=== PATIENT | female | born 1955 | race Caucasian/White ===

== ENCOUNTER 2016-04-27 13:32 | Emergency (ER) | payer OTHER ==
[2016-04-27] MEDS ORDERED: ASPIRIN 81 MG CHEW TABLET As Ordered ONE (14:24)
[2016-04-27 14:28] LABS: BASO # 0.1 K/mm3 (0.0-0.2); BASO % 0.9 % (0.0-1.0); EOS # 0.4 K/mm3 (0.0-0.50); LARGE UNSTAINED CELL # 0.2 K/mm3 (0.0-0.4); LARGE UNSTAINED CELL % 2.2 % (0.0-4.0); LYMPH # 1.8 K/mm3 (1.5-4.5); LYMPH % 24.4 % (24.0-44.0); MEAN CORPUSCULAR HEMOGLOBIN 29.5 pg (27.0-33.0); MEAN CORPUSCULAR HGB CONC 33.1 g/dl (32.0-36.5); MONO # 0.4 K/mm3 (0.0-0.8); NEUTROPHILS # 4.4 K/mm3 (1.8-7.7); NEUTROPHILS % 61.5 % (36.0-66.0); PLATELET COUNT, AUTOMATED 270 k/mm3 (150-450); RED CELL DISTRIBUTION WIDTH 12.7 % (11.5-14.5); WHITE BLOOD COUNT 7.2 K/mm3 (4.0-10.0)
[2016-04-27 14:45] LABS: ALBUMIN 3.8 GM/DL (3.2-5.2); ALBUMIN/GLOBULIN RATIO 1.06 (1.00-1.93); ALKALINE PHOSPHATASE 61 U/L (45-117); ALT/SGPT 24 U/L (12-78); AMYLASE 37 U/L (25-115); ANION GAP 8 MEQ/L (8-16); AST/SGOT 17 U/L (15-37); BILIRUBIN,DIRECT < 0.1 MG/DL (0.0-0.2); BILIRUBIN,TOTAL 0.3 MG/DL (0.2-1.0); BLOOD UREA NITROGEN 21 MG/DL (7-18); CALCIUM LEVEL 8.8 MG/DL (8.5-10.1); CARBON DIOXIDE LEVEL 26 MEQ/L (21-32); CHLORIDE LEVEL 108 MEQ/L (98-107); CREATININE FOR GFR 0.74 MG/DL (0.55-1.02); GLOMERULAR FILTRATION RATE > 60.0 (>51); GLUCOSE, FASTING 89 MG/DL (70-105); SODIUM LEVEL 142 MEQ/L (136-145); TOTAL PROTEIN 7.4 GM/DL (6.4-8.2)
[2016-04-27] MEDS ORDERED: ISOVUE-370 76% 100ML VIAL (Q9967) As Ordered ONE (14:59)
--- NOTE | 2016-04-27 15:52 | REP ---
CT pulmonary angiogram: With IV contrast. History: Chest pain. Comparison studies: Comparison chest x-ray from this date. Contrast dose: 75 cc's of Isovue [address] technique: Helical scanning is acquired and overlapping 1.5 mm and contiguous 3 mm axial images are reformatted. In addition, a 3-D work station is deployed to generate thick slab maximum intensity projection images in sagittal and coronal imaging projections. CT pulmonary angiographic findings: There is good opacification of the pulmonary arterial tree and there is no CT evidence of pulmonary embolus. Maximum intensity projection images show no evidence of vessel cutoff or filling defect in any of the pulmonary arterial branches. The thoracic aorta enhances homogeneously and is normal in caliber and course. No hilar or mediastinal mass or adenopathy is seen. A small hiatal hernia is noted behind the heart. Lung window settings show no evidence of pulmonary mass or infiltrate. There are two small areas of pleural plaquing along the minor fissure on the right. No bony destructive lesion is appreciated. Degenerative disc changes are noted in the thoracic spine. There are clips in the gallbladder fossa. No adrenal lesion is seen. Impression: 1. No CT evidence of pulmonary embolus. 2. Small sliding-type hiatal hernia. 3. Postcholecystectomy clips. No other significant abnormality. Signed by Michael Simpson MD 04/27/2016 04:50 P
--- NOTE | 2016-04-27 17:54 | EDDOCDS ---
Physician Documentation [facility] Name: Stephanie Gotti Age: 60 yrs Sex: Female : 1955 Arrival Date: 04/27/2016 Time: 13:32 Bed 12 Private MD: Taras [facility] [place] Disposition: 04/27/16 17:32 Discharged to Home/Self Care. Impression: Chest pain, unspecified, Other abdominal hernia - hiatal hernia. - Condition is Stable. - Discharge Instructions: Nonspecific Chest Pain, Hiatal Hernia. - Medication Reconciliation, Local Pharmacy Hours form. - Follow up: Wilfredo Garner MD; When: 4 - 5 days. Follow up: Milena Pollard, [facility]; When: Tomorrow. - Problem is new. - Symptoms have improved. - Notes[place] to Dr Ryan. He is happy to see you in consult. Return if worsening symptoms. Historical: - Allergies: SULFA (SULFONAMIDES); - Home Meds: 1. Lisinopril Unknown Oral Unknown once daily (Last dose: 04/27/2016 05:00) 2. Nexium 20 mg Oral cpDR 1 cap once daily (Last dose: 04/27/2016 05:00) 3. Fish Oil 1,000 mg Oral cap daily (Last dose: 04/27/2016 05:00) 4. ibuprofen 400 mg Oral tab (Last dose: 04/27/2016 05:00) 5. pine bark daily (Last dose: 04/27/2016 05:00) 6. allergy pill daily (Last dose: 04/27/2016 05:00) - PMHx: Hypertension; GERD; seasonal allergies; - PSHx: Cholecystectomy; hernia repair; - Social history: Smoking status: Patient states was never smoker of tobacco. Patient uses alcohol weekly. Patient/guardian denies using street drugs, No barriers to communication noted, The patient speaks fluent Nigerian, Speaks appropriately for age. - Family history: Not pertinent. - : The pt / caregiver states he / she is not on anticoagulants. Home medication list is obtained from the patient. - Exposure Risk Screening:: None identified. Vital Signs: 04/27 13:44 BP 172 / 87; Pulse 66; Resp 18; Pulse Ox 97% ; Weight 106.59 kg / 234.99 lbs; Height 5 ttb ft. 4 in. (162.56 cm); Pain 0/10; 13:44 BP 172 / 87 (auto/); dsf 13:44 Pulse 78 MON; Pulse Ox 96% ; dsf 13:57 BP 148 / 81 (auto/); dsf 13:57 Pulse 72 MON; Pulse Ox 95% ; dsf 14:00 Pulse 76 MON; Pulse Ox 95% ; ttb 14:11 BP 166 / 79 (auto/); ttb 14:11 Pulse 78 MON; Pulse Ox 95% ; ttb 14:15 Pulse 84 MON; Resp 18 S; Pulse Ox 96% on R/A; Pain 0/10; ttb 14:26 BP 178 / 76 (auto/); dsf 14:26 Pulse 76 MON; Pulse Ox 94% ; dsf 14:27 Temp 97.1(O); ttb 14:41 BP 183 / 78 (auto/); dsf 14:41 Pulse 68 MON; Pulse Ox 98% ; dsf 14:56 BP 185 / 86 (auto/); dsf 14:56 Pulse 70 MON; Pulse Ox 96% ; dsf 15:07 BP 173 / 95 (auto/); dsf 15:09 Pulse Ox 96% ; dsf 15:11 BP 194 / 81 (auto/); dsf 15:11 Pulse 100 MON; Pulse Ox 97% ; dsf 15:17 BP 163 / 77 (auto/); dsf 15:17 Pulse 100 MON; Pulse Ox 97% ; dsf 15:26 BP 145 / 78 (auto/); dsf 15:26 Pulse 82 MON; Pulse Ox 95% ; dsf 15:41 BP 146 / 78 (auto/); dsf 15:41 Pulse 76 MON; Pulse Ox 95% ; dsf 17:48 BP 147 / 76; Pulse 78; Resp 16; Temp 97.2(T); Pulse Ox 94% on R/A; Pain 0/10; dsf 13:44 Body Mass Index 40.34 (106.59 kg, 162.56 cm) ttb MDM: 13:37 ECG WITH READING ER PHYS+CARDIAG ordered. EDMS 14:22 Oral Temp ordered. ml 14:22 IV Saline Lock ordered. ml 14:22 Shower Maid/Pulse Ox/q 15 min VS ordered. ml 14:22 Rhythm Strip to chart ordered. ml 14:23 Aspirin Chewable Tablet 324 mg PO once ordered. ml 14:23 CBC with Diff Ordered. EDMS 14:23 MED Profile Ordered. EDMS 14:23 CIP Ordered. EDMS 14:23 Troponin Ordered. EDMS 14:23 D-Dimer Quant Ordered. EDMS 14:23 Liver Profile Ordered. EDMS 14:23 Lipase Ordered. EDMS 14:23 Amylase Ordered. EDMS 14:23 Chest, 1 View Ordered. EDMS 14:50 CBC with Diff Reviewed. ml 14:50 MED Profile Reviewed. ml 14:50 D-Dimer Quant Reviewed. ml 14:50 CIP Reviewed. ml 14:50 Troponin Reviewed. ml 14:50 Liver Profile Reviewed. ml 14:50 Lipase Reviewed. ml 14:50 Amylase Reviewed. ml 14:54 CT Chest Angio R/O PE Ordered. EDMS 15:33 Financial registration complete. gjb 15:37 [facility] Payment Agreement was scanned into [employer] and attached to record. gjb 15:42 Repeat EKG (put time details section) ordered. ml 15:42 Redraw CIP &Troponin (put time in details section) ordered. ml 16:04 Redraw CIP &Troponin (put time in details section) complete. lbd 16:04 Repeat EKG (put time details section) complete. lbd 16:08 CARDIAC MARKER PANEL Ordered. EDMS 16:08 ECG WITH READING ER PHYS ordered. EDMS 16:41 CT Chest Angio R/O PE Reviewed. ml 17:31 CARDIAC MARKER PANEL Reviewed. ml 17:31 CT Chest Angio R/O PE Reviewed. ml Administered Medications: 14:26 Drug: Aspirin 324 mg [aspirin 81 mg chewable tablet (4 tabs)] Route: PO; ttb Signatures: Dispatcher [employer] EDIN Rylie Mahmood MD MD ml Daly, Linda, Yard Conductor Unit [facility] Pattie York RN RN dsf Conner, Teresa, RN RN ttb Beck, Gabriela gjb The chart was reviewed and I authenticate all verbal orders and agree with the evaluation and treatment provided.Attachments: 15:37 [facility] Payment Agreement gj MTDD
--- NOTE | 2016-04-27 17:54 | EDDOCDS ---
Nurse's Notes [facility] Name: Stephanie Gotti Age: 60 yrs Sex: Female : 1955 Arrival Date: 04/27/2016 Time: 13:32 Bed 12 Private MD: DELBERT Grajeda Diagnosis: Chest pain, unspecified;Other abdominal hernia-hiatal hernia Presentation: 04/27 13:36 Presenting complaint: EMS states: chest pressure x4 days intermittent. SOB with ttb exertion. NR in route. Aspirin was not taken prior to arrival. Adult Sepsis Screening: The patient does not have new or worsening altered mentation. Patient's respiratory rate is less than 22. Systolic blood pressure is greater than 100. Patient has a qSOFA score of 0- Negative Sepsis Screen. Suicide/Homicide risk assessment- the patient denies having any suicidal and/or homicidal ideations and does not present with any other emotional, behavioral or mental health complaints. Status: The patient is a dependent. Transition of care: patient was not received from another setting of care. 13:36 Acuity: YOSSI Level 3 ttb 13:36 Method Of Arrival: Ambulance ttb Triage Assessment: 13:44 General: Appears in no apparent distress, well nourished, well groomed, Behavior is ttb appropriate for age, cooperative, pleasant. Pain: Denies pain. HIV screening NA for this visit Offered previously. Neurological: Level of Consciousness is awake, alert. Cardiovascular: Chest pain is described as "pressure not pain". Respiratory: Reports shortness of breath on exertion since worsening over 5 years -- 2 days worsening Denies cough, shortness of breath. GI: Denies nausea, vomiting, pain. Derm: Skin is normal. Musculoskeletal: Denies pain. Historical: - Allergies: SULFA (SULFONAMIDES); - Home Meds: 1. Lisinopril Unknown Oral Unknown once daily (Last dose: 04/27/2016 05:00) 2. Nexium 20 mg Oral cpDR 1 cap once daily (Last dose: 04/27/2016 05:00) 3. Fish Oil 1,000 mg Oral cap daily (Last dose: 04/27/2016 05:00) 4. ibuprofen 400 mg Oral tab (Last dose: 04/27/2016 05:00) 5. pine bark daily (Last dose: 04/27/2016 05:00) 6. allergy pill daily (Last dose: 04/27/2016 05:00) - PMHx: Hypertension; GERD; seasonal allergies; - PSHx: Cholecystectomy; hernia repair; - Social history: Smoking status: Patient states was never smoker of tobacco. Patient uses alcohol weekly. Patient/guardian denies using street drugs, No barriers to communication noted, The patient speaks fluent Yoruba, Speaks appropriately for age. - Family history: Not pertinent. - : The pt / caregiver states he / she is not on anticoagulants. Home medication list is obtained from the patient. - Exposure Risk Screening:: None identified. Screenin:52 Screening information is obtained from the patient. Fall risk: No risks identified. dsf Assistance ADL's: requires no assistance with activities of daily living. Abuse/DV Screen: The patient / caregiver reports he/she is: not in a situation that causes fear, pain or injury. Nutritional screening: No deficits noted. Advance Directives: Currently, there is no health care proxy. home support is adequate. Assessment: 14:00 General: Pt resting on stretcher. NAD noted. Primary RN given report. . Cardiovascular: ttb Rhythm is sinus rhythm No ectopy. 14:28 General: ASA given as documented. NAD noted. SR on monitor. Denies SOB, nausea.. ttb 15:01 Adult Sepsis Screening: The patient does not have new or worsening altered mentation. dsf Patient's respiratory rate is less than 22. Systolic blood pressure is greater than 100. Patient has a qSOFA score of 0- Negative Sepsis Screen. General: Appears in no apparent distress, comfortable, Behavior is appropriate for age, cooperative. Pain: Denies pain. Neurological: Level of Consciousness is awake, alert, Oriented to person, place, time. Cardiovascular: Capillary refill < 3 seconds Heart tones S1 S2 present Rhythm is sinus rhythm No ectopy. Respiratory: Airway is patent Respiratory effort is even, unlabored, Respiratory pattern is regular, symmetrical, Breath sounds are clear bilaterally. Denies shortness of breath. GI: Abdomen is non- distended Bowel sounds present X 4 quads. Abd is soft and non tender X 4 quads. Derm: Skin is pink, warm & dry. 15:53 General: Appears in no apparent distress, Behavior is appropriate for age, cooperative. dsf Pain: Denies pain. Neurological: Level of Consciousness is awake, alert. Cardiovascular: Capillary refill < 3 seconds Rhythm is sinus rhythm No ectopy. Respiratory: Airway is patent Respiratory effort is even, unlabored, Respiratory pattern is regular, symmetrical, Denies shortness of breath. Derm: Skin is pink, warm & dry. 16:37 General: Appears in no apparent distress, comfortable, Behavior is appropriate for age, dsf cooperative. Pain: Denies pain. Neurological: Level of Consciousness is awake, alert. Cardiovascular: Capillary refill < 3 seconds Rhythm is sinus rhythm No ectopy. Respiratory: Airway is patent Respiratory effort is even, unlabored, Respiratory pattern is regular, symmetrical. Derm: Skin is pink, warm & dry. 17:37 Adult Sepsis Screening: The patient does not have new or worsening altered mentation. dsf Patient's respiratory rate is less than 22. Systolic blood pressure is greater than 100. Patient has a qSOFA score of 0- Negative Sepsis Screen. General: Appears in no apparent distress, Behavior is appropriate for age, cooperative. Pain: Denies pain. Neurological: Level of Consciousness is awake, alert. Cardiovascular: Capillary refill < 3 seconds Rhythm is sinus rhythm No ectopy. Respiratory: Airway is patent Respiratory effort is even, unlabored, Respiratory pattern is regular, symmetrical. Derm: Skin is. Vital Signs: 13:44 BP 172 / 87; Pulse 66; Resp 18; Pulse Ox 97% ; Weight 106.59 kg; Height 5 ft. 4 in. ttb (162.56 cm); Pain 0/10; 13:44 BP 172 / 87 (auto/); dsf 13:44 Pulse 78 MON; Pulse Ox 96% ; dsf 13:57 BP 148 / 81 (auto/); dsf 13:57 Pulse 72 MON; Pulse Ox 95% ; dsf 14:00 Pulse 76 MON; Pulse Ox 95% ; ttb 14:11 BP 166 / 79 (auto/); ttb 14:11 Pulse 78 MON; Pulse Ox 95% ; ttb 14:15 Pulse 84 MON; Resp 18 S; Pulse Ox 96% on R/A; Pain 0/10; ttb 14:26 BP 178 / 76 (auto/); dsf 14:26 Pulse 76 MON; Pulse Ox 94% ; dsf 14:27 Temp 97.1(O); ttb 14:41 BP 183 / 78 (auto/); dsf 14:41 Pulse 68 MON; Pulse Ox 98% ; dsf 14:56 BP 185 / 86 (auto/); dsf 14:56 Pulse 70 MON; Pulse Ox 96% ; dsf 15:07 BP 173 / 95 (auto/); dsf 15:09 Pulse Ox 96% ; dsf 15:11 BP 194 / 81 (auto/); dsf 15:11 Pulse 100 MON; Pulse Ox 97% ; dsf 15:17 BP 163 / 77 (auto/); dsf 15:17 Pulse 100 MON; Pulse Ox 97% ; dsf 15:26 BP 145 / 78 (auto/); dsf 15:26 Pulse 82 MON; Pulse Ox 95% ; dsf 15:41 BP 146 / 78 (auto/); dsf 15:41 Pulse 76 MON; Pulse Ox 95% ; dsf 17:48 BP 147 / 76; Pulse 78; Resp 16; Temp 97.2(T); Pulse Ox 94% on R/A; Pain 0/10; dsf 13:44 Body Mass Index 40.34 (106.59 kg, 162.56 cm) ttb Vitals: 13:44 Log In Time N/A - ambulance arrival. ttb ED Course: 13:34 Patient visited by Jagruti Garcia, Brake Holder. lbd 13:34 Patient moved to Waiting lbd 13:35 DELBERT Grajeda is Private Physician. lbd 13:36 Patient moved to 12 lbd 13:36 patient relations specialist on. Pulse ox on. NIBP on. dsf 13:38 Triage Initiated ttb 13:46 Patient visited by Maureen Hughes PCA. jlf 13:46 EKG done. (by ED staff). Reviewed by Rylie Mahmood MD. jlf 13:47 Patient visited by Maureen Hughes PCA. jlf 14:00 Inserted peripheral IV: 20gauge IV in left antecubital area and blood collected. ttb Patient tolerated the procedure well. Labs drawn. (by ED staff). 14:09 Rylie Mahmood MD is Attending Physician. ml 14:09 Patient visited by Rylie Mahmood MD. ml 14:28 Patient visited by Janki Figueroa RN. ttb 15:05 Patient visited by Maureen Hughes PCA. jlf 15:06 Patient visited by Pattie York RN. dsf 15:[address] peg 15:18 Patient moved to 12 dsf 15:37 [facility] Payment Agreement was scanned into [employer] and attached to record. gjb 15:54 Patient visited by Pattie York RN. dsf 16:10 CT Chest Angio R/O PE Returned. EDMS 16:31 Patient visited by Maureen Hughes PCA. jlf 16:31 EKG done. (by ED staff). Reviewed by Rylie Mahmood MD. jlf 16:35 CARDIAC MARKER PANEL Sent. dsf 16:38 Patient visited by Pattie York RN. dsf 16:51 Patient visited by Maureen Hughes PCA. jlf 17:11 CT Chest Angio R/O PE Returned. EDMS 17:32 Wilfredo Garner MD is Referral Physician. ml 17:32 Milena Pollard [facility] is Referral Physician. ml 17:49 Discontinued lock intact, bleeding controlled, pressure dressing applied, No dsf redness/swelling at site. No procedures done that require assistance. 17:53 The patient / caregiver is instructed regarding the plan of care and ED course. dsf Administered Medications: 14:26 Drug: Aspirin 324 mg [aspirin 81 mg chewable tablet (4 tabs)] Route: PO; ttb Order Results: Lab Order: CBC with Diff; SPEC'M 04/27/16 13:47 Test: WHITE BLOOD COUNT; Value: 7.2; Range: 4.0-10.0; Units: K/mm3; Status: F Test: RED BLOOD COUNT; Value: 4.52; Range: 4.00-5.40; Units: M/mm3; Status: F Test: HEMOGLOBIN; Value: 13.3; Range: 12.0-16.0; Units: g/dl; Status: F Test: HEMATOCRIT; Value: 40.3; Range: 36.0-47.0; Units: %; Status: F Test: MEAN CORPUSCULAR VOLUME; Value: 89.0; Range: 80.0-96.0; Units: fl; Status: F Test: MEAN CORPUSCULAR HEMOGLOBIN; Value: 29.5; Range: 27.0-33.0; Units: pg; Status: F Test: MEAN CORPUSCULAR HGB CONC; Value: 33.1; Range: 32.0-36.5; Units: g/dl; Status: F Test: RED CELL DISTRIBUTION WIDTH; Value: 12.7; Range: 11.5-14.5; Units: %; Status: F Test: PLATELET COUNT, AUTOMATED; Value: 270; Range: 150-450; Units: k/mm3; Status: F Test: NEUTROPHILS %; Value: 61.5; Range: 36.0-66.0; Units: %; Status: F Test: LYMPH %; Value: 24.4; Range: 24.0-44.0; Units: %; Status: F Test: MONO %; Value: 6.0; Range: 0.0-5.0; Abnormal: Above high normal; Units: %; Status: F Test: EOS %; Value: 5.0; Range: 0.0-3.0; Abnormal: Above high normal; Units: %; Status: F Test: BASO %; Value: 0.9; Range: 0.0-1.0; Units: %; Status: F Test: LARGE UNSTAINED CELL %; Value: 2.2; Range: 0.0-4.0; Units: %; Status: F Test: NEUTROPHILS #; Value: 4.4; Range: 1.8-7.7; Units: K/mm3; Status: F Test: LYMPH #; Value: 1.8; Range: 1.5-4.5; Units: K/mm3; Status: F Test: MONO #; Value: 0.4; Range: 0.0-0.8; Units: K/mm3; Status: F Test: EOS #; Value: 0.4; Range: 0.0-0.50; Units: K/mm3; Status: F Test: BASO #; Value: 0.1; Range: 0.0-0.2; Units: K/mm3; Status: F Test: LARGE UNSTAINED CELL #; Value: 0.2; Range: 0.0-0.4; Units: K/mm3; Status: F Lab Order: MED Profile; SPEC'M 04/27/16 13:47 Test: GLUCOSE, FASTING; Value: 89; Range: 70-105; Units: MG/DL; Status: F Test: BLOOD UREA NITROGEN; Value: 21; Range: 7-18; Abnormal: Above high normal; Units: MG/DL; Status: F Test: CREATININE FOR GFR; Value: 0.74; Range: 0.55-1.02; Units: MG/DL; Status: F Test: GLOMERULAR FILTRATION RATE; Value: > 60.0; Range: >51; Status: F Test: SODIUM LEVEL; Value: 142; Range: 136-145; Units: MEQ/L; Status: F Test: POTASSIUM SERUM; Value: 4.0; Range: 3.5-5.1; Units: MEQ/L; Status: F Test: CHLORIDE LEVEL; Value: 108; Range: 98-107; Abnormal: Above high normal; Units: MEQ/L; Status: F Test: CARBON DIOXIDE LEVEL; Value: 26; Range: 21-32; Units: MEQ/L; Status: F Test: ANION GAP; Value: 8; Range: 8-16; Units: MEQ/L; Status: F Test: CALCIUM LEVEL; Value: 8.8; Range: 8.5-10.1; Units: MG/DL; Status: F Test Note: ; Units are mL/min/1.73 m2 Chronic Kidney Disease Staging per NKF: Stage I & II GFR >=60 Normal to Mildly Decreased Stage III GFR 30-59 Moderately Decreased Stage IV GFR 15-29 Severely Decreased Stage V GFR <15 Very Little GFR Left ESRD GFR <15 on MANAGER RN CASE Lab Order: CIP; SPEC'M 04/27/16 13:47 Test: CPK CREATINE PHOSPHOKINASE; Value: 102; Range: 26-192; Units: U/L; Status: F Test: CK-MB VALUE MASS; Value: 1.0; Range: 0.0-3.6; Units: NG/ML; Status: F Test: MB/CK RELATIVE INDEX; Value: 0.98; Range: < OR =4; Status: F Test Note: ; DIAGNOSIS CRITERIA MMB ng/ml Relative Index (RI) NON-AMI < or = 5 N/A DASILVA ZONE > 5 < or = 4 AMI > 5 > 4 Lab Order: Troponin; SPEC'M 04/27/16 13:47 Test: TROPONIN I; Value: < 0.02; Range: < 0.10; Units: NG/ML; Status: F Test Note: ; Troponin I Reference Interval for Siemens Rumsey LOCI: 99th Percentile= 0.00-0.045 ng/ml Risk Stratification: <= 0.10 ng/ml Decreased Risk for Adverse Clinical Events. 0.10-1.50 ng/ml Increased Risk for Adverse Clinical Events. Evaluation of additional criterion and/or repeat testing in 2-6 hours is suggested to rule out myocardial damage. >= 1.50 ng/ml Indicative of Myocardial Injury. Lab Order: D-Dimer Quant; [facility]04/27/16 13:47 Test: D-DIMER QUANT; Value: 531.0; Range: <500; Abnormal: Above high normal; Units: ng/ml; Status: F Lab Order: Liver Profile; [facility]04/27/16 13:47 Test: AST/SGOT; Value: 17; Range: 15-37; Units: U/L; Status: F Test: ALT/SGPT; Value: 24; Range: 12-78; Units: U/L; Status: F Test: ALKALINE PHOSPHATASE; Value: 61; Range: 45-117; Units: U/L; Status: F Test: BILIRUBIN,TOTAL; Value: 0.3; Range: 0.2-1.0; Units: MG/DL; Status: F Test: BILIRUBIN,DIRECT; Value: < 0.1; Range: 0.0-0.2; Units: MG/DL; Status: F Test: TOTAL PROTEIN; Value: 7.4; Range: 6.4-8.2; Units: GM/DL; Status: F Test: ALBUMIN; Value: 3.8; Range: 3.2-5.2; Units: GM/DL; Status: F Test: ALBUMIN/GLOBULIN RATIO; Value: 1.06; Range: 1.00-1.93; Status: F Lab Order: Lipase; [facility]04/27/16 13:47 Test: LIPASE; Value: 130; Range: 73-393; Units: U/L; Status: F Lab Order: Amylase; 04/27/16 13:47 Test: AMYLASE; Value: 37; Range: 25-115; Units: U/L; Status: F Lab Order: CARDIAC MARKER PANEL; [facility] 04/27/16 16:32 Test: CPK CREATINE PHOSPHOKINASE; Value: 94; Range: 26-192; Units: U/L; Status: F Test: CK-MB VALUE MASS; Value: 1.1; Range: 0.0-3.6; Units: NG/ML; Status: F Test: MB/CK RELATIVE INDEX; Value: 1.17; Range: < OR =4; Status: F Test: TROPONIN I; Value: < 0.02; Range: < 0.10; Units: NG/ML; Status: F Test Note: ; DIAGNOSIS CRITERIA MMB ng/ml Relative Index (RI) NON-AMI < or = 5 N/A DASILVA ZONE > 5 < or = 4 AMI > 5 > 4 Radiology Order: CT Chest Angio R/O PE Test: CT Chest Angio R/O PE REASON FOR EXAMINATION: Chest Pain; CT pulmonary angiogram: With IV contrast.; ; History: Chest pain.; ; Comparison studies: Comparison chest x-ray from this date.; ; Contrast dose: 75 cc's of Isovue 370 are administered intravenously.; ; CT technique: Helical scanning is acquired and overlapping 1.5 mm and contiguous; 3 mm axial images are reformatted. In addition, a 3-D work station is deployed; to generate thick slab maximum intensity projection images in sagittal and; coronal imaging projections.; ; CT pulmonary angiographic findings: There is good opacification of the pulmonary; arterial tree and there is no CT evidence of pulmonary embolus. Maximum; intensity projection images show no evidence of vessel cutoff or filling defect; in any of the pulmonary arterial branches. The thoracic aorta enhances; homogeneously and is normal in caliber and course. No hilar or mediastinal mass; or adenopathy is seen. A small hiatal hernia is noted behind the heart. Lung; window settings show no evidence of pulmonary mass or infiltrate. There are two; small areas of pleural plaquing along the minor fissure on the right. No bony; destructive lesion is appreciated. Degenerative disc changes are noted in the; thoracic spine. There are clips in the gallbladder fossa. No adrenal lesion is; seen.; ; Impression:; ; 1. No CT evidence of pulmonary embolus.; ; 2. Small sliding-type hiatal hernia.; ; 3. Postcholecystectomy clips. No other significant abnormality.; ; ; Signed by; Michael Simpson MD 04/27/2016 04:50 P; Outcome: 17:32 Discharge ordered by Provider. ml 17:53 Discharge Assessment: Patient awake, alert and oriented x 3. No cognitive and/or dsf functional deficits noted. Patient verbalized understanding of disposition instructions. patient administered narcotics - no. The following High Risk Discharge criteria are identified: None. Discharged to home ambulatory. Condition: stable. Discharge instructions given to patient, Instructed on discharge instructions, follow up and referral plans. Demonstrated understanding of instructions, Pt was receptive of discharge instructions/ teaching. CT Study completed. Property sent home with patient. 17:54 Patient left the ED. dsf Signatures: Dispatcher [employer] EDMS Rylie Mahmood MD MD ml Daly, Linda, Brake Holder Unit lbd Ignacio Nicholson Desiree,RN RN Janki Rachel, JOSE ANGEL RN Maureen Babcock, SOHAN COLORER Robina Cortez JANEEN
--- NOTE | 2016-04-27 18:12 | ECGEPIP ---
Stationary ECG Study [facility] - ED Test Date: 2016-04-27 Pat Name: ALEJANDRINA HERNANDEZ Department: Room: - Gender: F Devulcanizer Loader: echo : 1955 Requested By: Rylie Mahmood Order Number: [id number] Reading MD: Lubna Jett Measurements Intervals [place] Rate: 69 P: 64 [place]: 192 QRS: 39 QRSD: 89 T: 41 QT: 384 QTc: 414 Interpretive Statements SINUS RHYTHM POSSIBLE LEFT ATRIAL ENLARGEMENT NO PRIOR FOR COMPARISON Electronically Signed On 04-27-2016 18:12:04 EST by Lubna Jett
--- NOTE | 2016-04-27 18:15 | ECGEPIP ---
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
--- NOTE | 2016-04-28 11:31 | REP ---
AP portable chest radiograph 04/27/2016 Indication: Chest pain Comparison: PA and lateral chest 10/01/2010 Findings: The cardiomediastinal silhouette is upper normal size. Small amount of fibro atelectatic changes are seen in the lingula. Lungs are otherwise clear. Bones and soft tissues are within normal limits. Impression: Cardiomediastinal silhouette upper normal size. Small amount of fibro atelectatic changes in lingula Signed by Shelly Mason MD 04/28/2016 11:23 A
--- NOTE | 2016-04-29 18:55 | EDDOCDS ---
Physician Documentation [facility] Name: Stephanie Gotti Age: 60 yrs Sex: Female : 1955 Arrival Date: 04/27/2016 Time: 13:32 Bed 12 Private MD: Taras [facility] [place] Disposition: 04/27/16 17:32 Discharged to Home/Self Care. Impression: Chest pain, unspecified, Other abdominal hernia - hiatal hernia. - Condition is Stable. - Discharge Instructions: Nonspecific Chest Pain, Hiatal Hernia. - Medication Reconciliation, Local Pharmacy Hours form. - Follow up: Wilfredo Garner MD; When: 4 - 5 days. Follow up: Milena Pollard, [facility]; When: Tomorrow. - Problem is new. - Symptoms have improved. - Notes[place] to Dr Ryan. He is happy to see you in consult. Return if worsening symptoms. Historical: - Allergies: SULFA (SULFONAMIDES); - Home Meds: 1. Lisinopril Unknown Oral Unknown once daily (Last dose: 04/27/2016 05:00) 2. Nexium 20 mg Oral cpDR 1 cap once daily (Last dose: 04/27/2016 05:00) 3. Fish Oil 1,000 mg Oral cap daily (Last dose: 04/27/2016 05:00) 4. ibuprofen 400 mg Oral tab (Last dose: 04/27/2016 05:00) 5. pine bark daily (Last dose: 04/27/2016 05:00) 6. allergy pill daily (Last dose: 04/27/2016 05:00) - PMHx: Hypertension; GERD; seasonal allergies; - PSHx: Cholecystectomy; hernia repair; - Social history: Smoking status: Patient states was never smoker of tobacco. Patient uses alcohol weekly. Patient/guardian denies using street drugs, No barriers to communication noted, The patient speaks fluent [place], Speaks appropriately for age. - Family history: Not pertinent. - : The pt / caregiver states he / she is not on anticoagulants. Home medication list is obtained from the patient. - Exposure Risk Screening:: None identified. Vital Signs: 04/27 13:44 BP 172 / 87; Pulse 66; Resp 18; Pulse Ox 97% ; Weight 106.59 kg / 234.99 lbs; Height 5 ttb ft. 4 in. (162.56 cm); Pain 0/10; 13:44 BP 172 / 87 (auto/); dsf 13:44 Pulse 78 MON; Pulse Ox 96% ; dsf 13:57 BP 148 / 81 (auto/); dsf 13:57 Pulse 72 MON; Pulse Ox 95% ; dsf 14:00 Pulse 76 MON; Pulse Ox 95% ; ttb 14:11 BP 166 / 79 (auto/); ttb 14:11 Pulse 78 MON; Pulse Ox 95% ; ttb 14:15 Pulse 84 MON; Resp 18 S; Pulse Ox 96% on R/A; Pain 0/10; ttb 14:26 BP 178 / 76 (auto/); dsf 14:26 Pulse 76 MON; Pulse Ox 94% ; dsf 14:27 Temp 97.1(O); ttb 14:41 BP 183 / 78 (auto/); dsf 14:41 Pulse 68 MON; Pulse Ox 98% ; dsf 14:56 BP 185 / 86 (auto/); dsf 14:56 Pulse 70 MON; Pulse Ox 96% ; dsf 15:07 BP 173 / 95 (auto/); dsf 15:09 Pulse Ox 96% ; dsf 15:11 BP 194 / 81 (auto/); dsf 15:11 Pulse 100 MON; Pulse Ox 97% ; dsf 15:17 BP 163 / 77 (auto/); dsf 15:17 Pulse 100 MON; Pulse Ox 97% ; dsf 15:26 BP 145 / 78 (auto/); dsf 15:26 Pulse 82 MON; Pulse Ox 95% ; dsf 15:41 BP 146 / 78 (auto/); dsf 15:41 Pulse 76 MON; Pulse Ox 95% ; dsf 17:48 BP 147 / 76; Pulse 78; Resp 16; Temp 97.2(T); Pulse Ox 94% on R/A; Pain 0/10; dsf 13:44 Body Mass Index 40.34 (106.59 kg, 162.56 cm) ttb MDM: 13:37 ECG WITH READING ER PHYS+CARDIAG ordered. EDMS 14:22 Oral Temp ordered. ml 14:22 IV Saline Lock ordered. ml 14:22 Electroplating Worker/Pulse Ox/q 15 min VS ordered. ml 14:22 Rhythm Strip to chart ordered. ml 14:23 Aspirin Chewable Tablet 324 mg PO once ordered. ml 14:23 CBC with Diff Ordered. EDMS 14:23 MED Profile Ordered. EDMS 14:23 CIP Ordered. EDMS 14:23 Troponin Ordered. EDMS 14:23 D-Dimer Quant Ordered. EDMS 14:23 Liver Profile Ordered. EDMS 14:23 Lipase Ordered. EDMS 14:23 Amylase Ordered. EDMS 14:23 Chest, 1 View Ordered. EDMS 14:50 CBC with Diff Reviewed. ml 14:50 MED Profile Reviewed. ml 14:50 D-Dimer Quant Reviewed. ml 14:50 CIP Reviewed. ml 14:50 Troponin Reviewed. ml 14:50 Liver Profile Reviewed. ml 14:50 Lipase Reviewed. ml 14:50 Amylase Reviewed. ml 14:54 CT Chest Angio R/O PE Ordered. EDMS 15:33 Financial registration complete. gjb 15:37 [facility] [place] was scanned into [facility] and attached to record. gjb 15:42 Repeat EKG (put time details section) ordered. ml 15:42 Redraw CIP &Troponin (put time in details section) ordered. ml 16:04 Redraw CIP &Troponin (put time in details section) complete. lbd 16:04 Repeat EKG (put time details section) complete. lbd 16:08 CARDIAC MARKER PANEL Ordered. EDMS 16:08 ECG WITH READING ER PHYS ordered. EDMS 16:41 CT Chest Angio R/O PE Reviewed. ml 17:31 CARDIAC MARKER PANEL Reviewed. ml 17:31 CT Chest Angio R/O PE Reviewed. ml 04/28 11:37 T-Sheet-- Draft Copy was scanned into [facility] and attached to record. gb 11:37 ECG/EKG was scanned into [facility] and attached to record. gb 11:38 Trend VS was scanned into [facility] and attached to record. gb 11:38 Rhythm Strip was scanned into [facility] and attached to record. gb 11:38 Radiology Report was scanned into [facility] and attached to record. gb Administered Medications: 04/27 14:26 Drug: Aspirin 324 mg [aspirin 81 mg chewable tablet (4 tabs)] Route: PO; ttb Signatures: Dispatcher [employer] EDMS Rylie Mahmood MD MD ml Daly, Linda, Tariff Inspector Unit lbd Luisa Malin, Reg Reg gb Pattie York RN RN Janki Rachel RN RN Robina Church The chart was reviewed and I authenticate all verbal orders and agree with the evaluation and treatment provided.Attachments: 15:37 [facility] [place] Agreement gjb 04/28 11:37 T-Sheet-- Draft Copy gb 11:37 ECG/EKG gb Chart Complete MTDD
--- NOTE | 2016-04-29 18:55 | EDDOCDS ---
Nurse's Notes [facility] Name: Stephanie Gotti Age: 60 yrs Sex: Female : 1955 Arrival Date: 04/27/2016 Time: 13:32 Bed 12 Private MD: DELBERT Grajeda Diagnosis: Chest pain, unspecified;Other abdominal hernia-hiatal hernia Presentation: 04/27 13:36 Presenting complaint: EMS states: chest pressure x4 days intermittent. SOB with ttb exertion. NR in route. Aspirin was not taken prior to arrival. Adult Sepsis Screening: The patient does not have new or worsening altered mentation. Patient's respiratory rate is less than 22. Systolic blood pressure is greater than 100. Patient has a qSOFA score of 0- Negative Sepsis Screen. Suicide/Homicide risk assessment- the patient denies having any suicidal and/or homicidal ideations and does not present with any other emotional, behavioral or mental health complaints. Status: The patient is a dependent. Transition of care: patient was not received from another setting of care. 13:36 Acuity: YOSSI Level 3 ttb 13:36 Method Of Arrival: Ambulance ttb Triage Assessment: 13:44 General: Appears in no apparent distress, well nourished, well groomed, Behavior is ttb appropriate for age, cooperative, pleasant. Pain: Denies pain. HIV screening NA for this visit Offered previously. Neurological: Level of Consciousness is awake, alert. Cardiovascular: Chest pain is described as "pressure not pain". Respiratory: Reports shortness of breath on exertion since worsening over 5 years -- 2 days worsening Denies cough, shortness of breath. GI: Denies nausea, vomiting, pain. Derm: Skin is normal. Musculoskeletal: Denies pain. Historical: - Allergies: SULFA (SULFONAMIDES); - Home Meds: 1. Lisinopril Unknown Oral Unknown once daily (Last dose: 04/27/2016 05:00) 2. Nexium 20 mg Oral cpDR 1 cap once daily (Last dose: 04/27/2016 05:00) 3. Fish Oil 1,000 mg Oral cap daily (Last dose: 04/27/2016 05:00) 4. ibuprofen 400 mg Oral tab (Last dose: 04/27/2016 05:00) 5. pine bark daily (Last dose: 04/27/2016 05:00) 6. allergy pill daily (Last dose: 04/27/2016 05:00) - PMHx: Hypertension; GERD; seasonal allergies; - PSHx: Cholecystectomy; hernia repair; - Social history: Smoking status: Patient states was never smoker of tobacco. Patient uses alcohol weekly. Patient/guardian denies using street drugs, No barriers to communication noted, The patient speaks fluent Vietnamese, Speaks appropriately for age. - Family history: Not pertinent. - : The pt / caregiver states he / she is not on anticoagulants. Home medication list is obtained from the patient. - Exposure Risk Screening:: None identified. Screenin:52 Screening information is obtained from the patient. Fall risk: No risks identified. dsf Assistance ADL's: requires no assistance with activities of daily living. Abuse/DV Screen: The patient / caregiver reports he/she is: not in a situation that causes fear, pain or injury. Nutritional screening: No deficits noted. Advance Directives: Currently, there is no health care proxy. home support is adequate. Assessment: 14:00 General: Pt resting on stretcher. NAD noted. Primary RN given report. . Cardiovascular: ttb Rhythm is sinus rhythm No ectopy. 14:28 General: ASA given as documented. NAD noted. SR on monitor. Denies SOB, nausea.. ttb 15:01 Adult Sepsis Screening: The patient does not have new or worsening altered mentation. dsf Patient's respiratory rate is less than 22. Systolic blood pressure is greater than 100. Patient has a qSOFA score of 0- Negative Sepsis Screen. General: Appears in no apparent distress, comfortable, Behavior is appropriate for age, cooperative. Pain: Denies pain. Neurological: Level of Consciousness is awake, alert, Oriented to person, place, time. Cardiovascular: Capillary refill < 3 seconds Heart tones S1 S2 present Rhythm is sinus rhythm No ectopy. Respiratory: Airway is patent Respiratory effort is even, unlabored, Respiratory pattern is regular, symmetrical, Breath sounds are clear bilaterally. Denies shortness of breath. GI: Abdomen is non- distended Bowel sounds present X 4 quads. Abd is soft and non tender X 4 quads. Derm: Skin is pink, warm & dry. 15:53 General: Appears in no apparent distress, Behavior is appropriate for age, cooperative. dsf Pain: Denies pain. Neurological: Level of Consciousness is awake, alert. Cardiovascular: Capillary refill < 3 seconds Rhythm is sinus rhythm No ectopy. Respiratory: Airway is patent Respiratory effort is even, unlabored, Respiratory pattern is regular, symmetrical, Denies shortness of breath. Derm: Skin is pink, warm & dry. 16:37 General: Appears in no apparent distress, comfortable, Behavior is appropriate for age, dsf cooperative. Pain: Denies pain. Neurological: Level of Consciousness is awake, alert. Cardiovascular: Capillary refill < 3 seconds Rhythm is sinus rhythm No ectopy. Respiratory: Airway is patent Respiratory effort is even, unlabored, Respiratory pattern is regular, symmetrical. Derm: Skin is pink, warm & dry. 17:37 Adult Sepsis Screening: The patient does not have new or worsening altered mentation. dsf Patient's respiratory rate is less than 22. Systolic blood pressure is greater than 100. Patient has a qSOFA score of 0- Negative Sepsis Screen. General: Appears in no apparent distress, Behavior is appropriate for age, cooperative. Pain: Denies pain. Neurological: Level of Consciousness is awake, alert. Cardiovascular: Capillary refill < 3 seconds Rhythm is sinus rhythm No ectopy. Respiratory: Airway is patent Respiratory effort is even, unlabored, Respiratory pattern is regular, symmetrical. Derm: Skin is. Vital Signs: 13:44 BP 172 / 87; Pulse 66; Resp 18; Pulse Ox 97% ; Weight 106.59 kg; Height 5 ft. 4 in. ttb (162.56 cm); Pain 0/10; 13:44 BP 172 / 87 (auto/); dsf 13:44 Pulse 78 MON; Pulse Ox 96% ; dsf 13:57 BP 148 / 81 (auto/); dsf 13:57 Pulse 72 MON; Pulse Ox 95% ; dsf 14:00 Pulse 76 MON; Pulse Ox 95% ; ttb 14:11 BP 166 / 79 (auto/); ttb 14:11 Pulse 78 MON; Pulse Ox 95% ; ttb 14:15 Pulse 84 MON; Resp 18 S; Pulse Ox 96% on R/A; Pain 0/10; ttb 14:26 BP 178 / 76 (auto/); dsf 14:26 Pulse 76 MON; Pulse Ox 94% ; dsf 14:27 Temp 97.1(O); ttb 14:41 BP 183 / 78 (auto/); dsf 14:41 Pulse 68 MON; Pulse Ox 98% ; dsf 14:56 BP 185 / 86 (auto/); dsf 14:56 Pulse 70 MON; Pulse Ox 96% ; dsf 15:07 BP 173 / 95 (auto/); dsf 15:09 Pulse Ox 96% ; dsf 15:11 BP 194 / 81 (auto/); dsf 15:11 Pulse 100 MON; Pulse Ox 97% ; dsf 15:17 BP 163 / 77 (auto/); dsf 15:17 Pulse 100 MON; Pulse Ox 97% ; dsf 15:26 BP 145 / 78 (auto/); dsf 15:26 Pulse 82 MON; Pulse Ox 95% ; dsf 15:41 BP 146 / 78 (auto/); dsf 15:41 Pulse 76 MON; Pulse Ox 95% ; dsf 17:48 BP 147 / 76; Pulse 78; Resp 16; Temp 97.2(T); Pulse Ox 94% on R/A; Pain 0/10; dsf 13:44 Body Mass Index 40.34 (106.59 kg, 162.56 cm) ttb Vitals: 13:44 Log In Time N/A - ambulance arrival. ttb ED Course: 13:34 Patient visited by Jagruti Garcia, Returned Item Clerk. lbd 13:34 Patient moved to Waiting lbd 13:35 DELBERT Grajeda is Private Physician. lbd 13:36 Patient moved to 12 lbd 13:36 shelter monitor on. Pulse ox on. NIBP on. dsf 13:38 Triage Initiated ttb 13:46 Patient visited by Maureen Hughes PCA. jlf 13:46 EKG done. (by ED staff). Reviewed by Rylie Mahmood MD. jlf 13:47 Patient visited by Maureen Hughes PCA. jlf 14:00 Inserted peripheral IV: 20gauge IV in left antecubital area and blood collected. ttb Patient tolerated the procedure well. Labs drawn. (by ED staff). 14:09 Rylie Mahmood MD is Attending Physician. ml 14:09 Patient visited by Rylie Mahmood MD. ml 14:28 Patient visited by Janki Figueroa RN. ttb 15:05 Patient visited by Maureen Hughes PCA. jlf 15:06 Patient visited by Pattie York RN. dsf 15:[address] peg 15:18 Patient moved to 12 dsf 15:37 [place] Payment Agreement was scanned into [employer] and attached to record. gjb 15:54 Patient visited by Pattie York RN. dsf 16:10 CT Chest Angio R/O PE Returned. EDMS 16:31 Patient visited by Maureen Hughes PCA. jlf 16:31 EKG done. (by ED staff). Reviewed by Rylie Mahmood MD. jlf 16:35 CARDIAC MARKER PANEL Sent. dsf 16:38 Patient visited by Pattie York RN. dsf 16:51 Patient visited by Maureen Hughes PCA. jlf 17:11 CT Chest Angio R/O PE Returned. EDMS 17:32 Wilfredo Garner MD is Referral Physician. ml 17:32 Milena Pollard [facility] is Referral Physician. ml 17:49 Discontinued lock intact, bleeding controlled, pressure dressing applied, No dsf redness/swelling at site. No procedures done that require assistance. 17:53 The patient / caregiver is instructed regarding the plan of care and ED course. dsf 19:13 EKG-ADULT Returned. EDMS 19:13 ECG WITH READING ER PHYS Returned. EDMS 04/28 11:37 T-Sheet-- Draft Copy was scanned into [employer] and attached to record. gb 11:37 ECG/EKG was scanned into [employer] and attached to record. gb 11:38 Trend VS was scanned into [employer] and attached to record. gb 11:38 Rhythm Strip was scanned into [employer] in [employer] and attached to record. gb 11:38 Radiology Report was scanned into [employer] and attached to record. gb 11:41 Chest, 1 View Returned. EDMS Administered Medications: 04/27 14:26 Drug: Aspirin 324 mg [aspirin 81 mg chewable tablet (4 tabs)] Route: PO; ttb Attachments: 11:38 Trend VS gb 11:38 Rhythm Strip gb Order Results: Lab Order: CBC with Diff; SPEC'M 04/27/16 13:47 Test: WHITE BLOOD COUNT; Value: 7.2; Range: 4.0-10.0; Units: K/mm3; Status: F Test: RED BLOOD COUNT; Value: 4.52; Range: 4.00-5.40; Units: M/mm3; Status: F Test: HEMOGLOBIN; Value: 13.3; Range: 12.0-16.0; Units: g/dl; Status: F Test: HEMATOCRIT; Value: 40.3; Range: 36.0-47.0; Units: %; Status: F Test: MEAN CORPUSCULAR VOLUME; Value: 89.0; Range: 80.0-96.0; Units: fl; Status: F Test: MEAN CORPUSCULAR HEMOGLOBIN; Value: 29.5; Range: 27.0-33.0; Units: pg; Status: F Test: MEAN CORPUSCULAR HGB CONC; Value: 33.1; Range: 32.0-36.5; Units: g/dl; Status: F Test: RED CELL DISTRIBUTION WIDTH; Value: 12.7; Range: 11.5-14.5; Units: %; Status: F Test: PLATELET COUNT, AUTOMATED; Value: 270; Range: 150-450; Units: k/mm3; Status: F Test: NEUTROPHILS %; Value: 61.5; Range: 36.0-66.0; Units: %; Status: F Test: LYMPH %; Value: 24.4; Range: 24.0-44.0; Units: %; Status: F Test: MONO %; Value: 6.0; Range: 0.0-5.0; Abnormal: Above high normal; Units: %; Status: F Test: EOS %; Value: 5.0; Range: 0.0-3.0; Abnormal: Above high normal; Units: %; Status: F Test: BASO %; Value: 0.9; Range: 0.0-1.0; Units: %; Status: F Test: LARGE UNSTAINED CELL %; Value: 2.2; Range: 0.0-4.0; Units: %; Status: F Test: NEUTROPHILS #; Value: 4.4; Range: 1.8-7.7; Units: K/mm3; Status: F Test: LYMPH #; Value: 1.8; Range: 1.5-4.5; Units: K/mm3; Status: F Test: MONO #; Value: 0.4; Range: 0.0-0.8; Units: K/mm3; Status: F Test: EOS #; Value: 0.4; Range: 0.0-0.50; Units: K/mm3; Status: F Test: BASO #; Value: 0.1; Range: 0.0-0.2; Units: K/mm3; Status: F Test: LARGE UNSTAINED CELL #; Value: 0.2; Range: 0.0-0.4; Units: K/mm3; Status: F Lab Order: MED Profile; SPEC'04/27/16 13:47 Test: GLUCOSE, FASTING; Value: 89; Range: 70-105; Units: MG/DL; Status: F Test: BLOOD UREA NITROGEN; Value: 21; Range: 7-18; Abnormal: Above high normal; Units: MG/DL; Status: F Test: CREATININE FOR GFR; Value: 0.74; Range: 0.55-1.02; Units: MG/DL; Status: F Test: GLOMERULAR FILTRATION RATE; Value: > 60.0; Range: >51; Status: F Test: SODIUM LEVEL; Value: 142; Range: 136-145; Units: MEQ/L; Status: F Test: POTASSIUM SERUM; Value: 4.0; Range: 3.5-5.1; Units: MEQ/L; Status: F Test: CHLORIDE LEVEL; Value: 108; Range: 98-107; Abnormal: Above high normal; Units: MEQ/L; Status: F Test: CARBON DIOXIDE LEVEL; Value: 26; Range: 21-32; Units: MEQ/L; Status: F Test: ANION GAP; Value: 8; Range: 8-16; Units: MEQ/L; Status: F Test: CALCIUM LEVEL; Value: 8.8; Range: 8.5-10.1; Units: MG/DL; Status: F Test Note: ; Units are mL/min/1.73 m2 Chronic Kidney Disease Staging per NKF: Stage I & II GFR >=60 Normal to Mildly Decreased Stage III GFR 30-59 Moderately Decreased Stage IV GFR 15-29 Severely Decreased Stage V GFR <15 Very Little GFR Left ESRD GFR <15 on INGOT STRIPPER Lab Order: CIP; SPEC'M 04/27/16 13:47 Test: CPK CREATINE PHOSPHOKINASE; Value: 102; Range: 26-192; Units: U/L; Status: F Test: CK-MB VALUE MASS; Value: 1.0; Range: 0.0-3.6; Units: NG/ML; Status: F Test: MB/CK RELATIVE INDEX; Value: 0.98; Range: < OR =4; Status: F Test Note: ; DIAGNOSIS CRITERIA MMB ng/ml Relative Index (RI) NON-AMI < or = 5 N/A DASILVA ZONE > 5 < or = 4 AMI > 5 > 4 Lab Order: Troponin; SPEC'M 04/27/16 13:47 Test: TROPONIN I; Value: < 0.02; Range: < 0.10; Units: NG/ML; Status: F Test Note: ; Troponin I Reference Interval for omelett.es LOCI: 99th Percentile= 0.00-0.045 ng/ml Risk Stratification: <= 0.10 ng/ml Decreased Risk for Adverse Clinical Events. 0.10-1.50 ng/ml Increased Risk for Adverse Clinical Events. Evaluation of additional criterion and/or repeat testing in 2-6 hours is suggested to rule out myocardial damage. >= 1.50 ng/ml Indicative of Myocardial Injury. Lab Order: D-Dimer Quant; SPEC'M 04/27/16 13:47 Test: D-DIMER QUANT; Value: 531.0; Range: <500; Abnormal: Above high normal; Units: ng/ml; Status: F Lab Order: Liver Profile; SPEC'M 04/27/16 13:47 Test: AST/SGOT; Value: 17; Range: 15-37; Units: U/L; Status: F Test: ALT/SGPT; Value: 24; Range: 12-78; Units: U/L; Status: F Test: ALKALINE PHOSPHATASE; Value: 61; Range: 45-117; Units: U/L; Status: F Test: BILIRUBIN,TOTAL; Value: 0.3; Range: 0.2-1.0; Units: MG/DL; Status: F Test: BILIRUBIN,DIRECT; Value: < 0.1; Range: 0.0-0.2; Units: MG/DL; Status: F Test: TOTAL PROTEIN; Value: 7.4; Range: 6.4-8.2; Units: GM/DL; Status: F Test: ALBUMIN; Value: 3.8; Range: 3.2-5.2; Units: GM/DL; Status: F Test: ALBUMIN/GLOBULIN RATIO; Value: 1.06; Range: 1.00-1.93; Status: F Lab Order: Lipase; SPEC'M 04/27/16 13:47 Test: LIPASE; Value: 130; Range: 73-393; Units: U/L; Status: F Lab Order: Amylase; SPEC'M 04/27/16 13:47 Test: AMYLASE; Value: 37; Range: 25-115; Units: U/L; Status: F Lab Order: CARDIAC MARKER PANEL; SPEC'M 04/27/16 16:32 Test: CPK CREATINE PHOSPHOKINASE; Value: 94; Range: 26-192; Units: U/L; Status: F Test: CK-MB VALUE MASS; Value: 1.1; Range: 0.0-3.6; Units: NG/ML; Status: F Test: MB/CK RELATIVE INDEX; Value: 1.17; Range: < OR =4; Status: F Test: TROPONIN I; Value: < 0.02; Range: < 0.10; Units: NG/ML; Status: F Test Note: ; DIAGNOSIS CRITERIA MMB ng/ml Relative Index (RI) NON-AMI < or = 5 N/A DASILVA ZONE > 5 < or = 4 AMI > 5 > 4 Radiology Order: EKG-ADULT Test: EKG-ADULT REASON FOR EXAMINATION: Chest Pain; Stationary ECG Study; [facility] - ED; ; Test Date: 2016-04-27; Pat Name: STEPHANIE CASTROMONS Department:; Room: -; Gender: F Modeler: echo; : 1955 Requested By: Rylie Mahmood; Order Number: [id number] Reading MD: Lubna Jett; Measurements; Intervals [place]; Rate: 69 P: 64; [place]: 192 QRS: 39; QRSD: 89 T: 41; QT: 384; QTc: 414; Interpretive Statements; SINUS RHYTHM; POSSIBLE LEFT ATRIAL ENLARGEMENT; NO PRIOR FOR COMPARISON; Electronically Signed On 04-27-2016 18:12:04 EST by Lubna Jett; Radiology Order: Chest, 1 View Test: Chest, 1 View REASON FOR EXAMINATION: cp; AP portable chest radiograph 04/27/2016; ; Indication: Chest pain; ; Comparison: PA and lateral chest 10/01/2010; ; Findings: The cardiomediastinal silhouette is upper normal size. Small amount; of fibro atelectatic changes are seen in the lingula. Lungs are otherwise clear.; Bones and soft tissues are within normal limits.; ; Impression:; ; Cardiomediastinal silhouette upper normal size.; ; Small amount of fibro atelectatic changes in lingula; ; ; Signed by; Shelly Mason MD 04/28/2016 11:23 A; Radiology Order: CT Chest Angio R/O PE Test: CT Chest Angio R/O PE REASON FOR EXAMINATION: Chest Pain; CT pulmonary angiogram: With IV contrast.; ; History: Chest pain.; ; Comparison studies: Comparison chest x-ray from this date.; ; Contrast dose: 75 cc's of Isovue 370 are administered intravenously.; ; CT technique: Helical scanning is acquired and overlapping 1.5 mm and contiguous; 3 mm axial images are reformatted. In addition, a 3-D work station is deployed; to generate thick slab maximum intensity projection images in sagittal and; coronal imaging projections.; ; CT pulmonary angiographic findings: There is good opacification of the pulmonary; arterial tree and there is no CT evidence of pulmonary embolus. Maximum; intensity projection images show no evidence of vessel cutoff or filling defect; in any of the pulmonary arterial branches. The thoracic aorta enhances; homogeneously and is normal in caliber and course. No hilar or mediastinal mass; or adenopathy is seen. A small hiatal hernia is noted behind the heart. Lung; window settings show no evidence of pulmonary mass or infiltrate. There are two; small areas of pleural plaquing along the minor fissure on the right. No bony; destructive lesion is appreciated. Degenerative disc changes are noted in the; thoracic spine. There are clips in the gallbladder fossa. No adrenal lesion is; seen.; ; Impression:; ; 1. No CT evidence of pulmonary embolus.; ; 2. Small sliding-type hiatal hernia.; ; 3. Postcholecystectomy clips. No other significant abnormality.; ; ; Signed by; Michael Simpson MD 04/27/2016 04:50 P; Radiology Order: ECG WITH READING ER PHYS Test: ECG WITH READING ER PHYS REASON FOR EXAMINATION: CHEST PRESSURE(REPEAT EKG AT 4:30); Stationary ECG Study; [facility] - ED; ; Test Date: 2016-04-27; Pat Name: STEPHANIE GOTTI Department:; Room: -; Gender: F Modeler: echo; : 1955 Requested By: Rylie Mahmood; Order Number: [id number] Reading MD: Lubna Jett; Measurements; Intervals [place]; Rate: 64 P: 56; [place]: 185 QRS: 42; QRSD: 98 T: 42; QT: 394; QTc: 407; Interpretive Statements; SINUS RHYTHM; SIMILAR 04/27/16; Electronically Signed On 04-27-2016 18:15:26 EST by Lubna Jett; Outcome: 04/27 17:32 Discharge ordered by Provider. 17:53 Discharge Assessment: Patient awake, alert and oriented x 3. No cognitive and/or dsf functional deficits noted. Patient verbalized understanding of disposition instructions. patient administered narcotics - no. The following High Risk Discharge criteria are identified: None. Discharged to home ambulatory. Condition: stable. Discharge instructions given to patient, Instructed on discharge instructions, follow up and referral plans. Demonstrated understanding of instructions, Pt was receptive of discharge instructions/ teaching. CT Study completed. Property sent home with patient. 17:54 Patient left the ED. dsf Signatures: Dispatcher [employer] EDDE Rylie Mahmood MD MD ml Daly, Linda, Returned Item Clerk Unit lbd Ignacio Nicholson Gloria, [place] Reg Pattie Coleman RN RN dsf Janki Figueroa RN RN Maureen Babcock PCA PLANNING DIRECTOR Robina Cortez Chart Complete MTDD
--- NOTE | 2016-04-29 18:55 | EDDOCDS ---
Physician Documentation [facility] Name: Stephanie Gotti Age: 60 yrs Sex: Female : 1955 Arrival Date: 04/27/2016 Time: 13:32 Bed 12 Private MD: Taras [facility] Disposition: 04/27/16 17:32 Discharged to Home/Self Care. Impression: Chest pain, unspecified, Other abdominal hernia - hiatal hernia. - Condition is Stable. - Discharge Instructions: Nonspecific Chest Pain, Hiatal Hernia. - Medication Reconciliation, Local Pharmacy Hours form. - Follow up: Wilfredo Garner MD; When: 4 - 5 days. Follow up: Milena Pollard, [facility]; When: Tomorrow. - Problem is new. - Symptoms have improved. - Notes[place] to Dr Ryan. He is happy to see you in consult. Return if worsening symptoms. Historical: - Allergies: SULFA (SULFONAMIDES); - Home Meds: 1. Lisinopril Unknown Oral Unknown once daily (Last dose: 04/27/2016 05:00) 2. Nexium 20 mg Oral cpDR 1 cap once daily (Last dose: 04/27/2016 05:00) 3. Fish Oil 1,000 mg Oral cap daily (Last dose: 04/27/2016 05:00) 4. ibuprofen 400 mg Oral tab (Last dose: 04/27/2016 05:00) 5. pine bark daily (Last dose: 04/27/2016 05:00) 6. allergy pill daily (Last dose: 04/27/2016 05:00) - PMHx: Hypertension; GERD; seasonal allergies; - PSHx: Cholecystectomy; hernia repair; - Social history: Smoking status: Patient states was never smoker of tobacco. Patient uses alcohol weekly. Patient/guardian denies using street drugs, No barriers to communication noted, The patient speaks fluent [place], Speaks appropriately for age. - Family history: Not pertinent. - : The pt / caregiver states he / she is not on anticoagulants. Home medication list is obtained from the patient. - Exposure Risk Screening:: None identified. Vital Signs: 04/27 13:44 BP 172 / 87; Pulse 66; Resp 18; Pulse Ox 97% ; Weight 106.59 kg / 234.99 lbs; Height 5 ttb ft. 4 in. (162.56 cm); Pain 0/10; 13:44 BP 172 / 87 (auto/); dsf 13:44 Pulse 78 MON; Pulse Ox 96% ; dsf 13:57 BP 148 / 81 (auto/); dsf 13:57 Pulse 72 MON; Pulse Ox 95% ; dsf 14:00 Pulse 76 MON; Pulse Ox 95% ; ttb 14:11 BP 166 / 79 (auto/); ttb 14:11 Pulse 78 MON; Pulse Ox 95% ; ttb 14:15 Pulse 84 MON; Resp 18 S; Pulse Ox 96% on R/A; Pain 0/10; ttb 14:26 BP 178 / 76 (auto/); dsf 14:26 Pulse 76 MON; Pulse Ox 94% ; dsf 14:27 Temp 97.1(O); ttb 14:41 BP 183 / 78 (auto/); dsf 14:41 Pulse 68 MON; Pulse Ox 98% ; dsf 14:56 BP 185 / 86 (auto/); dsf 14:56 Pulse 70 MON; Pulse Ox 96% ; dsf 15:07 BP 173 / 95 (auto/); dsf 15:09 Pulse Ox 96% ; dsf 15:11 BP 194 / 81 (auto/); dsf 15:11 Pulse 100 MON; Pulse Ox 97% ; dsf 15:17 BP 163 / 77 (auto/); dsf 15:17 Pulse 100 MON; Pulse Ox 97% ; dsf 15:26 BP 145 / 78 (auto/); dsf 15:26 Pulse 82 MON; Pulse Ox 95% ; dsf 15:41 BP 146 / 78 (auto/); dsf 15:41 Pulse 76 MON; Pulse Ox 95% ; dsf 17:48 BP 147 / 76; Pulse 78; Resp 16; Temp 97.2(T); Pulse Ox 94% on R/A; Pain 0/10; dsf 13:44 Body Mass Index 40.34 (106.59 kg, 162.56 cm) ttb MDM: 13:37 ECG WITH READING ER PHYS+CARDIAG ordered. EDMS 14:22 Oral Temp ordered. ml 14:22 IV Saline Lock ordered. ml 14:22 Scenic Artist/Pulse Ox/q 15 min VS ordered. ml 14:22 Rhythm Strip to chart ordered. ml 14:23 Aspirin Chewable Tablet 324 mg PO once ordered. ml 14:23 CBC with Diff Ordered. EDMS 14:23 MED Profile Ordered. EDMS 14:23 CIP Ordered. EDMS 14:23 Troponin Ordered. EDMS 14:23 D-Dimer Quant Ordered. EDMS 14:23 Liver Profile Ordered. EDMS 14:23 Lipase Ordered. EDMS 14:23 Amylase Ordered. EDMS 14:23 Chest, 1 View Ordered. EDMS 14:50 CBC with Diff Reviewed. ml 14:50 MED Profile Reviewed. ml 14:50 D-Dimer Quant Reviewed. ml 14:50 CIP Reviewed. ml 14:50 Troponin Reviewed. ml 14:50 Liver Profile Reviewed. ml 14:50 Lipase Reviewed. ml 14:50 Amylase Reviewed. ml 14:54 CT Chest Angio R/O PE Ordered. EDMS 15:33 Financial registration complete. gjb 15:37 [facility] [place] [facility] Payment Agreement was scanned into [employer] and attached to record. gjb 15:42 Repeat EKG (put time details section) ordered. ml 15:42 Redraw CIP &Troponin (put time in details section) ordered. ml 16:04 Redraw CIP &Troponin (put time in details section) complete. lbd 16:04 Repeat EKG (put time details section) complete. lbd 16:08 CARDIAC MARKER PANEL Ordered. EDMS 16:08 ECG WITH READING ER PHYS ordered. EDMS 16:41 CT Chest Angio R/O PE Reviewed. ml 17:31 CARDIAC MARKER PANEL Reviewed. ml 17:31 CT Chest Angio R/O PE Reviewed. ml 04/28 11:37 T-Sheet-- Draft Copy was scanned into [employer] and attached to record. gb 11:37 ECG/EKG was scanned into [employer] and attached to record. gb 11:38 Trend VS was scanned into [employer] and attached to record. gb 11:38 Rhythm Strip was scanned into [employer] and attached to record. gb 11:38 Radiology Report was scanned into [employer] and attached to record. gb Administered Medications: 04/27 14:26 Drug: Aspirin 324 mg [aspirin 81 mg chewable tablet (4 tabs)] Route: PO; ttb Signatures: Dispatcher [employer] EDMS Rylie Mahmood MD MD ml Daly, Linda, Academic Affairs Vice President Unit lbd Luisa Malin, Reg Reg gb Pattie York RN RN Janki Rachel RN RN Robina Church The chart was reviewed and I authenticate all verbal orders and agree with the evaluation and treatment provided.Attachments: 15:37 [facility] Payment Agreement gjb 04/28 11:37 T-Sheet-- Draft Copy gb 11:37 ECG/EKG gb Chart Complete MTDD
== END 2016-04-27 17:54 | disposition home or self-care (01) ==
LOC: M ED 13:32
DX: R07.9 Chest pain, unspecified (principal); K44.9 Diaphragmatic hernia without obstruction or gangrene; I10 Essential (primary) hypertension; K21.9 Gastro-esophageal reflux disease without esophagitis; J30.2 Other seasonal allergic rhinitis; Z79.899 Other long term (current) drug therapy; Z88.2 Allergy status to sulfonamides
CPT/HCPCS: 36415; 71010; 71275; 80048; 80076; 82150; 82550; 82553; 83690; 85025; 85379; 93005; 93041; 99285; Q9967